=== PATIENT | female | born 1980 | race Two or more races ===

== ENCOUNTER 2023-11-10 14:29 | Observation (INO) ==
[2023-11-10 15:42] LABS: ABS Basophils 0.1 10^3/uL (0.0-0.1); ABS Eosinophils 0.1 10^3/uL (0.0-0.5); ABS Lymphocytes 2.5 10^3/uL (1.0-4.8); ABS Monocytes 0.8 10^3/uL (0.0-0.9); ABS Neutrophils 3.9 10^3/uL (1.5-7.6); Eosinophil % 0.8 %; Hematocrit 43.8 % (35-45); Hemoglobin 14.9 g/dL (11.5-14.3); Mean Corpuscular Hemoglobin 30.4 pg (27-33); Mean Corpuscular Hgb Conc 33.9 g/dL (31-36); Mean Corpuscular Volume 89.7 fL (80-97); Mean Platelet Volume 9.6 fL (7.5-11.2); Platelet Count 309 10^3/uL (150-450); Red Blood Count 4.88 10^6/uL (3.63-4.92); Red Cell Distribution Width 12.8 % (12-17); White Blood Count 7.3 10^3/uL (3.8-11.8)
[2023-11-10 16:07] LABS: High Sens Troponin Baseline 3 pg/mL (<15)
[2023-11-10 16:12] LABS: ALT 19 U/L (7-52); AST 19 U/L (13-39); Albumin 4.8 g/dL (3.2-5.2); Albumin/Globulin Ratio 2.2 (1-3); Alcohol, S < 13 mg/dL (<13); Alkaline Phosphatase 92 U/L (35-149); Anion Gap 14 mmol/L (2-16); Blood Urea Nitrogen 8 mg/dL (6-24); CO2 Carbon Dioxide 22 mmol/L (22-32); Calcium 10.6 mg/dL (8.6-10.3); Chloride 106 mmol/L (101-111); Creatinine, Serum 0.87 mg/dL (0.51-0.95); Globulin 2.2 g/dL (2-4); Glucose 146 mg/dL (70-100); Potassium 3.7 mmol/L (3.5-5.0); Sodium 142 mmol/L (135-145); Total Bilirubin 0.8 mg/dL (0.2-1.0); eGFR CKD-EPI 84.7 (>60)
[2023-11-10 16:25] LABS: TSH Ultra Thyroid Stim Horm 2.77 mcIU/mL (0.34-5.60)
[2023-11-10 17:21] LABS: High Sensitivity Troponin 1 Hr 3 pg/mL (<15)
[2023-11-10] MEDS: Lactated Ringers 1000 ml BAG 1,000 ML IV ONE ×2 (18:15→23:43)
[2023-11-10 18:22] LABS: Acetaminophen < 15 mcg/mL; C Reactive Protein 6.61 mg/L (<8.01); Salicylate < 2.50 mg/dL (<30)
[2023-11-10] MEDS ORDERED: Lorazepam PYXIS KEY PRN (18:39)
[2023-11-10] MEDS: LORazepam 2 mg VIAL 1 ml IV PUSH ONE (18:48)
[2023-11-10 18:55] LABS: Rapid Strep Molecular Negative (Negative)
[2023-11-10 19:58] LABS: Venous Bicarbonate HCO3 23.5 mmol/L (24-28)
[2023-11-10] MEDS: Iohexol 350 (CONTRAST) 500 ML MDV IV ONE (20:43)
[2023-11-11 02:31] LABS: Creatine Kinase 119 U/L (10-223)
[2023-11-11] MEDS ORDERED: UBROGEPANT 50 MG TABLET PO PRN (02:56)
[2023-11-11] MEDS: levETIRAcetam 500 MG IVPREMIX 500 MG/100 ML BAG IVPB ONE (03:00)
[2023-11-11] MEDS: levETIRAcetam IV 1,500 MG in NS 0.9% 100 ml BAG 100 ML IVPB ONE (04:29)
[2023-11-11 08:14] LABS: Urine Benzodiazepine Screen None Detected (None Detect); Urine Cannabinoids Screen None Detected (None Detect); Urine Opiates Screen None Detected (None Detect)
[2023-11-11] MEDS: NORETHINDRONE E ESTRADIOL IRON PO SCH (11:06)
[2023-11-11] MEDS: DULoxetine DR 30 mg CAP PO SCH (11:06)
[2023-11-11 22:38] LABS: Urine Appearance Clear; Urine Bilirubin Negative (Negative); Urine Blood Negative (Negative); Urine Color Colorless; Urine Glucose Negative (Negative); Urine Ketones 1+ (Negative); Urine Nitrite Negative (Negative); Urine Protein Negative (Negative); Urine Specific Gravity 1.009 (1.002-1.030); Urine Urobilinogen Negative (Negative); Urine pH 6.5 (5.0-8.0)
[2023-11-12 10:31] LABS: ABS Basophils 0.1 10^3/uL (0.0-0.1); ABS Eosinophils 0.1 10^3/uL (0.0-0.5); ABS Lymphocytes 2.3 10^3/uL (1.0-4.8); ABS Monocytes 0.6 10^3/uL (0.0-0.9); ABS Neutrophils 3.3 10^3/uL (1.5-7.6); Eosinophil % 1.6 %; Hematocrit 41.4 % (35-45); Hemoglobin 14.2 g/dL (11.5-14.3); Lymphocyte % 36.9 %; Mean Corpuscular Hemoglobin 30.9 pg (27-33); Mean Corpuscular Hgb Conc 34.3 g/dL (31-36); Mean Platelet Volume 9.6 fL (7.5-11.2); Nucleated Red Blood Cells % 0.1 %/100WBC (0.0-0.8); Platelet Count 236 10^3/uL (150-450); Red Cell Distribution Width 13.1 % (12-17); White Blood Count 6.4 10^3/uL (3.8-11.8)
[2023-11-12 11:16] LABS: Calcium 9.4 mg/dL (8.6-10.3); Creatinine, Serum 0.74 mg/dL (0.51-0.95); Potassium 3.7 mmol/L (3.5-5.0); eGFR CKD-EPI 102.9 (>60)
[2023-11-12] MEDS ORDERED: Haloperidol 5 mg/ml SDV IV/IM 5 MG/ML AMP ONE (13:39)
[2023-11-12] MEDS: Haloperidol 5 mg/ml SDV IV/IM 5 MG/ML AMP IM ONE ×2 (13:40→18:00)
[2023-11-12] MEDS: Haloperidol 5 mg/ml SDV IV/IM 5 MG/ML AMP ONE (18:30)
[2023-11-12] MEDS ORDERED: Lorazepam PYXIS KEY PRN (18:31)
[2023-11-12] MEDS: LORazepam 2 mg VIAL 1 ml IM ONE (18:51)
[2023-11-13 14:13] VITALS: BP 120/84
[2023-11-13 23:50] LABS: Anaplasma phagocytophilum Negative (Negative); B. miyamotoi PCR, B Negative (Negative); Babesia divergens/MO-1 Negative (Negative); Babesia ducani Negative (Negative); Ehrlichia chaffeensis Negative (Negative); Ehrlichia ewingii/canis Negative (Negative); Ehrlichia muris eauclairensis Negative (Negative)
[2023-11-14] MEDS ORDERED: DULoxetine DR 30 mg CAP PO SCH (09:00)
== END 2023-11-13 16:30 ==
LOC: ED 14:29 → EDHOLD 14:29 → SUATTDRO 11-11 02:46 → MED 11-11 10:53
PROVIDERS: ADMIT Student in an Organized Health Care Education/Training Program; ATTEND Internal Medicine

== ENCOUNTER 2023-11-13 16:34 | Inpatient (IN) ==
[2023-11-14] MEDS ORDERED: COVID VAC 24-25 (12+) (Moderna) Syringe 0.5 mL IM ONE (09:00)
[2023-11-14] MEDS ORDERED: Influenza Vaccine *TRI* 2024-25* 0.5 ML SYRINGE IM ONE (09:00)
[2023-11-14] MEDS ORDERED: Al Hydrox/Mg Hydrox/Simet LIQ 30 ML UDC PO PRN (09:01)
[2023-11-14] MEDS ORDERED: UBROGEPANT 50 MG PO PRN (09:02)
[2023-11-14] MEDS: DULoxetine DR 30 mg CAP PO SCH (10:04)
[2023-11-14] MEDS: [UNRECOGNIZED DRUG - OTHER] PO SCH (10:53)
[2023-11-14] MEDS: NORETHINDRONE E ESTRADIOL IRON PO SCH (10:53)
[2023-11-15] MEDS: DULoxetine DR 30 mg CAP PO SCH (08:39)
[2023-11-16] MEDS: Magnesium Hydroxide LIQ 30 ML UDC PO PRN (11:27)
[2023-11-17] MEDS ORDERED: Polyethylene Glycol 3350 17 GM PACKET PO PRN (16:44)
[2023-11-20 10:18] VITALS: BP 109/71
== END 2023-11-20 13:14 | disposition home or self-care (01) | DRG 753 ==
LOC: BSU 16:38
PROVIDERS: ADMIT Psychiatry & Neurology Psychiatry; ATTEND Psychiatry & Neurology Psychiatry